=== PATIENT | female | born 1955 | race Caucasian/White ===

== ENCOUNTER 2020-06-14 13:38 | Outpatient (CLI) | payer OTHER, SELFPAY ==
--- NOTE | ~2020-06-14 | US_ITS ---
EXAMINATION: US venous doppler [facility] DATE: 06/14/2020 14:22 INDICATION: Lower limb pain, swelling and erythema. Localized mass or lump at the lateral lower leg. TECHNIQUE: Grayscale ultrasound images without and with compression and Doppler ultrasound images of the bilateral lower extremity veins were obtained. COMPARISON: None. FINDINGS: The visualized portions of right common femoral vein, profunda (deep) femoral vein, femoral vein, pop liteal vein, peroneal trunk, soleal vein, posterior tibial veins, peroneal veins, gastrocnemius vein and greater saphenous vein outflow are patent. The visualized portions of left common femoral vein, profunda femoral vein, femoral vein, popliteal v ein, peroneal trunk, soleal vein, posterior tibial veins, peroneal veins, gastrocnemius vein and grea ter saphenous vein outflow are patent. IMPRESSION: 1. No deep venous thrombosis in either lower limb. Reviewed, dictated and finalized at location A. [place] [employer] TRA[employer]
== END 2020-06-14 13:39 ==
LOC: MICIMG 13:40
PROVIDERS: PCP Family Medicine; Visit Provider Nurse Practitioner Family
DX: R60.0 Localized edema (principal)
CPT/HCPCS: 93970

== ENCOUNTER → 2022-08-08 07:38 | Outpatient (CLI) | payer OTHER, SELFPAY ==
--- NOTE | ~2022-08-08 | XR_ITS ---
Clinical Indication: Obstructive sleep apnea PA and lateral views of the chest: Comparison: None Findings: The lungs are clear, without evidence of focal consolidation or pleural effusion. Eventrati on of the right hemidiaphragm noted. Cardiomediastinal silhouette is within normal limits. Bones and soft tissues are unremarkable. Impression: Clear lungs. Reviewed, dictated and finalized at location . 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
== END ==
PROVIDERS: PCP Family Medicine; Visit Provider Nurse Practitioner Family
DX: G47.33 Obstructive sleep apnea (adult) (pediatric) (principal)
CPT/HCPCS: 71046

== ENCOUNTER 2022-08-08 08:01 | Outpatient (CLI) | payer MEDICARE, SELFPAY ==
--- NOTE | 2022-08-08 08:16 | ECG_ITS ---
Measurements Intervals [place] Rate: 61 P: 26 MA: 153 QRS: -14 QRSD: 79 T: 26 QT: 408 QTc: 411 Interpretive Statements SINUS RHYTHM WITHIN NORMAL LIMITS NO PREVIOUS ECG AVAILABLE FOR COMPARISON Electronically Signed On 08-08-2022 14:54:30 NEUROSURGERY RESEARCH DIRECTOR by Fransisco Whitley M.D.
== END 2022-08-08 08:02 | disposition home or self-care (01) ==
LOC: ANHLAB 08:03 → ANHCARD 08:03
PROVIDERS: PCP Family Medicine; Visit Provider Nurse Practitioner Family
DX: E03.9 Hypothyroidism, unspecified (principal)
CPT/HCPCS: 93005